=== PATIENT | female | born 1940 ===

== ENCOUNTER 2020-08-14 18:50 | Inpatient (IN) | payer MEDICARE, SELFPAY ==
[~2020-08-14 18:50] MED LIST: Esmolol 100 MG/10 ML VIAL ONE; Iopamidol 370 76% 100 ML VIAL ONE; Iopamidol 370 76% 50 ML VIAL FS ONE; Lidocaine 1% PF 5 ML VIAL ONE; PHENYLEPHRINE-NS 100 MCG/ML 10 ML SYRINGE ONE; PROPOFOL 200 MG/20 ML VIAL ONE; Rocuronium Bromide 10 MG/ML (10ML VIAL) ONE
[2020-08-14] MEDS ORDERED: Labetalol HCl 100 MG/20 ML VIAL SLOW IVP PRN (19:34)
[2020-08-14] MEDS ORDERED: niCARdipine 25 MG in Sodium Chloride 0.9% 250 ML 240 ML IVPB PRN (19:34)
[2020-08-14] MEDS ORDERED: hydrALAZINE 20 MG/ML VIAL SLOW IVP PRN (19:34)
[2020-08-14] MEDS ORDERED: Milk Of Magnesia 30 ML UDCUP PO PRN (19:34)
[2020-08-14] MEDS: Atorvastatin Calcium 40 MG TAB PO SCH ×2 (21:32→22:51)
[2020-08-14] MEDS: Communication Order-Pharmacy FS SCH (21:32)
[2020-08-14 23:05] LABS: #Basophils 0.1 thou/uL (0.0-0.2); #Lymphocytes 2.6 thou/uL (1.20-3.40); #Monocytes 0.8 thou/uL (0.11-0.59); #Neutrophils 7.4 thou/uL (1.40-6.50); %Basophils 0.6 % (0.0-1.0); %Eosinophils 0.2 % (0.0-10.0); %Lymphocytes 23.7 % (21.0-51.0); %Monocytes 7.1 % (0.0-10.0); %Neutrophils 68.5 % (42.0-75.0); Hemoglobin 13.5 g/dL (12.0-16.0); Mean Corpuscular HGB CONC 35.5 g/dL (32.0-36.0); Mean Corpuscular Hemoglobin 31.2 pg (27.0-31.0); Mean Corpuscular Volume 87.7 fL (78.0-98.0); Mean Platelet Volume 7.7 fL (7.4-10.4); Platelet Count 210 thou/uL (130-400); Red Blood Cell (RBC) Count 4.34 mill/uL (4.20-5.40); White Blood Cell (WBC) Count 10.9 thou/uL (4.8-10.8)
[2020-08-14 23:27] LABS: ALT (SGPT) 16 U/L (8-55); AST (SGOT) 24 U/L (5-34); Albumin 3.5 g/dL (3.4-4.8); Alkaline Phosphatase 59 U/L (40-110); Anion Gap 13 mmol/L (10-20); BUN (Urea Nitrogen) 16 mg/dL (9.8-20.1); Bilirubin, Total 0.7 mg/dL (0.2-1.2); Calc. Creatinine Clearance 68 mL/min (70-130); Calcium 7.8 mg/dL (7.8-10.44); Carbon Dioxide 21 mmol/L (23-31); Chloride 112 mmol/L (98-107); Globulin 2.5 g/dL (2.4-3.5); Glucose 112 mg/dL (83-110); Magnesium 1.7 mg/dL (1.6-2.6); Potassium 3.8 mmol/L (3.5-5.1); Sodium 142 mmol/L (136-145)
[2020-08-15 04:47] LABS: #Lymphocytes 2.5 thou/uL (1.20-3.40); #Monocytes 0.8 thou/uL (0.11-0.59); #Neutrophils 5.8 thou/uL (1.40-6.50); %Basophils 0.5 % (0.0-1.0); %Eosinophils 0.2 % (0.0-10.0); %Lymphocytes 27.4 % (21.0-51.0); %Monocytes 8.8 % (0.0-10.0); %Neutrophils 63.2 % (42.0-75.0); Hemoglobin 13.1 g/dL (12.0-16.0); Mean Corpuscular HGB CONC 34.5 g/dL (32.0-36.0); Mean Corpuscular Hemoglobin 30.4 pg (27.0-31.0); Mean Corpuscular Volume 88.2 fL (78.0-98.0); Mean Platelet Volume 8.1 fL (7.4-10.4); Platelet Count 206 thou/uL (130-400); RBC Distribution Width 13.1 % (11.5-14.5); White Blood Cell (WBC) Count 9.2 thou/uL (4.8-10.8)
[2020-08-15 05:29] LABS: Anion Gap 13 mmol/L (10-20); BUN (Urea Nitrogen) 15 mg/dL (9.8-20.1); Calc. Creatinine Clearance 65 mL/min (70-130); Calcium 8.2 mg/dL (7.8-10.44); Carbon Dioxide 22 mmol/L (23-31); Cardiac Risk 2.7 (Less than 4.5); Chloride 111 mmol/L (98-107); Cholesterol 174 mg/dl (< 200 Desired); Glucose 100 mg/dL (83-110); HDL Cholesterol 64 mg/dL (>60 Neg Risk); LDL Cholesterol, Calculated 98 mg/dL; Potassium 3.5 mmol/L (3.5-5.1); Sodium 142 mmol/L (136-145); Triglycerides 61 mg/dL (Less than 150)
[2020-08-15] MEDS: Atorvastatin Calcium 40 MG TAB PO SCH (21:00)
[2020-08-15] MEDS: Communication Order-Pharmacy FS SCH (21:49)
[2020-08-16 05:06] LABS: #Basophils 0.1 thou/uL (0.0-0.2); #Eosinphils 0.1 thou/uL (0.0-0.7); #Lymphocytes 3.2 thou/uL (1.20-3.40); #Neutrophils 5.6 thou/uL (1.40-6.50); %Basophils 0.7 % (0.0-1.0); %Eosinophils 0.8 % (0.0-10.0); %Lymphocytes 32.2 % (21.0-51.0); %Monocytes 9.8 % (0.0-10.0); %Neutrophils 56.5 % (42.0-75.0); Hemoglobin 14.1 g/dL (12.0-16.0); Mean Corpuscular HGB CONC 33.2 g/dL (32.0-36.0); Mean Corpuscular Hemoglobin 29.4 pg (27.0-31.0); Mean Corpuscular Volume 88.7 fL (78.0-98.0); Platelet Count 198 thou/uL (130-400); RBC Distribution Width 13.2 % (11.5-14.5); Red Blood Cell (RBC) Count 4.79 mill/uL (4.20-5.40); White Blood Cell (WBC) Count 9.9 thou/uL (4.8-10.8)
[2020-08-16 05:15] LABS: Hemoglobin A1c 5.3 % (4.0-6.0)
[2020-08-16 05:25] LABS: Anion Gap 12 mmol/L (10-20); BUN (Urea Nitrogen) 14 mg/dL (9.8-20.1); Calc. Creatinine Clearance 66 mL/min (70-130); Calcium 8.6 mg/dL (7.8-10.44); Carbon Dioxide 22 mmol/L (23-31); Chloride 109 mmol/L (98-107); Glucose 93 mg/dL (83-110); Potassium 3.7 mmol/L (3.5-5.1); Sodium 139 mmol/L (136-145)
[2020-08-16] MEDS ORDERED: Aspirin 325 mg Enteric Coated Tablet PO SCH (09:00)
[2020-08-16] MEDS ORDERED: Aspirin 300 MG Suppository PR SCH (09:00)
[2020-08-16] MEDS ORDERED: Clopidogrel Bisulfate 75 MG TAB PO SCH (14:45)
[2020-08-16] MEDS: Atorvastatin Calcium 40 MG TAB PO SCH (20:38)
[2020-08-17 05:03] LABS: #Basophils 0.1 thou/uL (0.0-0.2); #Eosinphils 0.1 thou/uL (0.0-0.7); #Lymphocytes 2.8 thou/uL (1.20-3.40); #Monocytes 0.8 thou/uL (0.11-0.59); #Neutrophils 5.5 thou/uL (1.40-6.50); %Basophils 0.7 % (0.0-1.0); %Eosinophils 1.6 % (0.0-10.0); %Monocytes 8.6 % (0.0-10.0); %Neutrophils 59.2 % (42.0-75.0); Hemoglobin 13.8 g/dL (12.0-16.0); Mean Corpuscular HGB CONC 33.2 g/dL (32.0-36.0); Mean Corpuscular Hemoglobin 29.5 pg (27.0-31.0); Mean Corpuscular Volume 88.9 fL (78.0-98.0); Mean Platelet Volume 8.1 fL (7.4-10.4); Platelet Count 190 thou/uL (130-400); RBC Distribution Width 13.2 % (11.5-14.5); Red Blood Cell (RBC) Count 4.67 mill/uL (4.20-5.40); White Blood Cell (WBC) Count 9.3 thou/uL (4.8-10.8)
[2020-08-17 05:24] LABS: Anion Gap 12 mmol/L (10-20); BUN (Urea Nitrogen) 18 mg/dL (9.8-20.1); Calc. Creatinine Clearance 67 mL/min (70-130); Calcium 8.4 mg/dL (7.8-10.44); Carbon Dioxide 23 mmol/L (23-31); Chloride 108 mmol/L (98-107); Glucose 108 mg/dL (83-110); Potassium 3.9 mmol/L (3.5-5.1); Sodium 139 mmol/L (136-145)
[2020-08-17] MEDS ORDERED: Zolpidem Tartrate 5 MG TAB PO PRN (07:52)
[2020-08-17] MEDS ORDERED: Bisacodyl 5 MG TAB PO PRN (07:52)
[2020-08-17] MEDS ORDERED: Cepastat Lozenges 1 LOZ PO PRN (07:52)
[2020-08-17] MEDS ORDERED: Ondansetron ODT 4 MG TAB PO PRN (07:52)
[2020-08-17] MEDS ORDERED: Ondansetron PF 4 MG/2 ML Vial IVP PRN (07:52)
[2020-08-17] MEDS ORDERED: GUAIFENESIN SF SOLN 200 MG/10 ML UDCUP PO PRN (07:52)
[2020-08-17] MEDS ORDERED: Sodium Chloride 0.65% Nasal 44 ML BOT EA NARE PRN (07:52)
[2020-08-17] MEDS ORDERED: HYDROcodone/Acetaminophen 5/325 mg Tablet PO PRN (07:52)
[2020-08-17] MEDS ORDERED: Loratadine 10 MG TAB PO PRN (07:52)
[2020-08-17] MEDS ORDERED: Loperamide HCl 2 MG CAP PO PRN (07:52)
[2020-08-17] MEDS ORDERED: Calcium Carbonate 500 MG ChewTAB PO PRN (07:52)
[2020-08-17] MEDS ORDERED: Senokot S 8.6-50 MG TAB PO PRN (07:52)
[2020-08-17] MEDS: Clopidogrel Bisulfate 75 MG TAB PO SCH (09:19)
[2020-08-17] MEDS: Acetaminophen 325 MG TAB PO PRN (09:19)
[2020-08-17] MEDS: Aspirin 81 mg Enteric Coated Tablet PO SCH (09:20)
[2020-08-17] MEDS: Atorvastatin Calcium 40 MG TAB PO SCH (22:34)
[2020-08-18 05:42] LABS: #Basophils 0.1 thou/uL (0.0-0.2); #Eosinphils 0.2 thou/uL (0.0-0.7); #Lymphocytes 3.3 thou/uL (1.20-3.40); #Monocytes 0.7 thou/uL (0.11-0.59); #Neutrophils 6.2 thou/uL (1.40-6.50); %Basophils 0.6 % (0.0-1.0); %Lymphocytes 31.4 % (21.0-51.0); %Monocytes 6.9 % (0.0-10.0); %Neutrophils 59.2 % (42.0-75.0); Hemoglobin 13.6 g/dL (12.0-16.0); Mean Corpuscular HGB CONC 34.6 g/dL (32.0-36.0); Mean Corpuscular Hemoglobin 30.7 pg (27.0-31.0); Mean Corpuscular Volume 88.7 fL (78.0-98.0); Mean Platelet Volume 8.6 fL (7.4-10.4); Platelet Count 157 thou/uL (130-400); RBC Distribution Width 12.9 % (11.5-14.5); Red Blood Cell (RBC) Count 4.44 mill/uL (4.20-5.40); White Blood Cell (WBC) Count 10.5 thou/uL (4.8-10.8)
[2020-08-18 06:05] LABS: Anion Gap 11 mmol/L (10-20); BUN (Urea Nitrogen) 21 mg/dL (9.8-20.1); Calc. Creatinine Clearance 64 mL/min (70-130); Calcium 8.4 mg/dL (7.8-10.44); Carbon Dioxide 25 mmol/L (23-31); Chloride 108 mmol/L (98-107); Glucose 95 mg/dL (83-110); Potassium 3.8 mmol/L (3.5-5.1); Sodium 140 mmol/L (136-145)
[2020-08-18] MEDS: Aspirin 81 mg Enteric Coated Tablet PO SCH (09:20)
[2020-08-18] MEDS: Clopidogrel Bisulfate 75 MG TAB PO SCH (09:20)
[2020-08-18] MEDS: Famotidine 20 MG TAB PO SCH ×3 (09:20→20:34)
[2020-08-18 19:34] LABS: Bilirubin Negative (Negative); Blood, Urine Negative (Negative); Clarity Clear (Clear); Glucose, Urine (Dipstick) Normal (Negative); Ketone, Urine Negative (Negative); Leukocyte Negative Leu/uL (Negative); Nitrite Negative (Negative); Protein, Urine (Dipstick) 10 mg/dL (Neg-Trace); Specific Gravity, Urine 1.028 (1.002-1.036); Urobilinogen Normal mg/dL (Less than 2)
[2020-08-18] MEDS: Atorvastatin Calcium 40 MG TAB PO SCH (20:35)
[2020-08-19] MEDS: Aspirin 81 mg Enteric Coated Tablet PO SCH (09:05)
[2020-08-19] MEDS: Famotidine 20 MG TAB PO SCH ×2 (09:05→20:48)
[2020-08-19] MEDS: Clopidogrel Bisulfate 75 MG TAB PO SCH (09:05)
[2020-08-19 11:55] VITALS: BMI 30.5
[2020-08-19] MEDS: Carvedilol 3.125 MG TAB PO SCH (16:19)
[2020-08-19] MEDS: Atorvastatin Calcium 40 MG TAB PO SCH (20:48)
[2020-08-20] MEDS: Famotidine 20 MG TAB PO SCH ×3 (08:06→20:44)
[2020-08-20] MEDS: Clopidogrel Bisulfate 75 MG TAB PO SCH (08:06)
[2020-08-20] MEDS: Aspirin 81 mg Enteric Coated Tablet PO SCH (08:06)
[2020-08-20] MEDS: Carvedilol 3.125 MG TAB PO SCH ×2 (08:06→17:07)
[2020-08-20] MEDS ORDERED: Enoxaparin Sodium 40 MG/0.4 ML SYRINGE SC SCH (11:00)
[2020-08-20] MEDS: Atorvastatin Calcium 40 MG TAB PO SCH (20:44)
[2020-08-21] MEDS: Carvedilol 3.125 MG TAB PO SCH ×2 (08:58→17:41)
[2020-08-21] MEDS: Famotidine 20 MG TAB PO SCH ×2 (08:59→21:06)
[2020-08-21] MEDS: Aspirin 81 mg Enteric Coated Tablet PO SCH (11:22)
[2020-08-21] MEDS: Clopidogrel Bisulfate 75 MG TAB PO SCH (11:23)
[2020-08-21] MEDS: Enoxaparin Sodium 40 MG/0.4 ML SYRINGE SC SCH (11:23)
[2020-08-21] MEDS: Acetaminophen 325 MG TAB PO PRN (15:41)
[2020-08-21] MEDS: Atorvastatin Calcium 40 MG TAB PO SCH (21:06)
[2020-08-22] MEDS: Aspirin 81 mg Enteric Coated Tablet PO SCH (08:08)
[2020-08-22] MEDS: Famotidine 20 MG TAB PO SCH (08:08)
[2020-08-22] MEDS: Clopidogrel Bisulfate 75 MG TAB PO SCH (08:09)
[2020-08-22] MEDS: Enoxaparin Sodium 40 MG/0.4 ML SYRINGE SC SCH (08:09)
[2020-08-22] MEDS: Carvedilol 3.125 MG TAB PO SCH ×2 (08:09→16:53)
[2020-08-22 08:36] LABS: SARS-CoV-2 NAA Rapid Test Not Detected (NotDetected)
[2020-08-22 14:56] VITALS: BP 131/65; TEMP 98.3
== END 2020-08-22 18:15 | DRG 24 ==
LOC: CCL 18:50 → CCU 20:10 → 2SE 08-15 20:39
PROVIDERS: ADMIT Neurological Surgery; ATTEND Internal Medicine
PROC: 03CG3ZZ Extirpation of Matter from Intracranial Artery, Percutaneous Approach (ICD-10-PCS; principal; 2020-08-14)
PROC: B31R1ZZ Fluoroscopy of Intracranial Arteries using Low Osmolar Contrast (ICD-10-PCS; 2020-08-14)
PROC: 4A023N7 Measurement of Cardiac Sampling and Pressure, Left Heart, Percutaneous Approach (ICD-10-PCS; 2020-08-14)
PROC: B2111ZZ Fluoroscopy of Multiple Coronary Arteries using Low Osmolar Contrast (ICD-10-PCS; 2020-08-14)
PROC: B3101ZZ Fluoroscopy of Thoracic Aorta using Low Osmolar Contrast (ICD-10-PCS; 2020-08-14)
DX: I63.511 Cerebral infarction due to unspecified occlusion or stenosis of right middle cerebral artery (principal); G81.94 Hemiplegia, unspecified affecting left nondominant side; R47.81 Slurred speech; R29.810 Facial weakness; R27.0 Ataxia, unspecified; R47.01 Aphasia; E78.5 Hyperlipidemia, unspecified; I10 Essential (primary) hypertension
CPT/HCPCS: 36223; 36415; 36416; 70450; 70551; 71045; 80048; 80053; 80061; 81003; 83036; 83735; 84443; 85025; 93306; 95712; 95819; 95957; C1887; J1650; J2704; Q9967; U0002; U0003; U0005